=== PATIENT | male | born 2005 | race Caucasian/White ===

== ENCOUNTER 2024-08-05 12:33 | Outpatient (AMB) | payer BC, SELFPAY ==
--- NOTE | 2024-08-05 12:34 | MHC.PC.OV ---
Vital Signs 08/05/24 12:36 Height 5 ft 9 in Weight 165 lb BMI 24.4 BP 118/76 Blood Pressure Location Lt brachial Position Sitting Pulse 83 Pulse Source Pulse Oximeter Temp 98.8 F Temp Source Oral Pulse Oximetry (%) 98 Oxygen Delivery Method Room Air Intake Visit Reasons: New patient PE ok Per Dr. Haji Intake Note: Pt is here today for New patient visit PE. Allergies No Known Allergies Allergy (Verified 08/05/24 12:37) Medication List - Last Reconciled 08/05/24 by Herminia Haji MD No Known Home Meds Tobacco use date assessed: 08/05/24 Dental Screening Dental Screen Date: 08/05/24 Did you have a dental visit in the last 12 months?: Yes Did you have a dental problem in the last 6 months where you did not have access to dental care?: No Was dental information given to patient?: Patient has dentist HPI New patient PE ok Per Dr. 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 Patient reports episodes of headaches on and off for the last few weeks. He denies change in vision, nausea vomiting fever chills allergic rhinitis symptoms but reports waking up frequently at night at least 5 times at night for the last 2 years. He has no difficulty falling back to sleep. Patient denies witnessed episodes of sleep apnea, increased stress or anxiety. 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 [facility] Surgical History (Updated 08/05/24 @ 12:40 by Lauren Rosenberg Carlos) No pertinent past surgical history Family History Father No problems noted. Mother Type 2 diabetes mellitus Social History Household Members Other:: lives with parents, student at [employer], Housing: House Patient Tobacco Use Status: Never used Tobacco e-Cigarette/Vaping Use: Never Used service: No Current occupational status: employed and student Cognitive needs: No Hearing needs: No Vision needs: Yes Questionnaire PHQ-9 Over the last 2 weeks, how often have you been bothered by any of the following problems? 1. Little interest or pleasure in doing things: not at all 2. Feeling down, depressed, or hopeless: not at all 3. Trouble falling or staying asleep, or sleeping too much: several days 4. Feeling tired or having little energy: several days 5. Poor appetite or overeating: several days 6. Feeling bad about yourself - or that you are a failure or have let yourself or your family down: not at all 7. Trouble concentrating on things, such as reading the newspaper or watching television: not at all 8. Moving or speaking so slowly that other people could have noticed. Or the opposite - being so fidgety or restless that you have been moving around a lot more than usual: not at all 9. Thoughts that you would be better off or of hurting yourself in some way: not at all Total score: 3 Depression Screening Interpretation: Negative Depression Screening Done: Yes 02747 - PHQ-9 Billing: Yes Source: Developed by Drs. Roberth Montemayor, Nan Fritz, Faizan Khalil and colleagues, with an educational ratna from [employer]. Thrive Questionnaire Date Thrive assessed: 08/05/24 I am a: Patient What is your living situation today?: I have a steady place to live Within the past 12 months, did the food you bought not last and you didn't have the money to get more?: Never true Within the past 12 months, did you worry whether your food would run out before you got money to buy more?: Never true Do you have trouble paying for medicines?: I choose not to answer this question Do you have trouble getting transportation to medical appointments?: I choose not to answer this question Do you have trouble paying your heating and electricity bill?: I choose not to answer this question Do you have trouble taking care of your child, family member or friend?: I choose not to answer this question Do you have trouble with day-to-day activities such as bathing, preparing meals, shopping, managing finances, etc.?: I choose not to answer this question Are you currently unemployed and looking for a job?: I choose not to answer this question Are you interested in more education?: I choose not to answer this question Please select the resources that you would like help with: None Currently or been in a relationship where the following occur: No concerns reported THRIVE Score: 0 AUDIT C Alcohol Use Questionnaire (AUDIT-C) 1. How often do you have a drink containing alcohol?: Monthly or less 2. How many drinks containing alcohol do you have on a typical day when you are drinking?: 3 or 4 3. How often do you have six or more drinks on one occasion?: Less than monthly Total Score: 3 LESLIE-7 AMB Questionnaire LESLIE-7 Date LESLIE - 7 assessed: 08/05/24 Feeling nervous, anxious, or on edge: 0 = Not at all Not being able to stop or control worryin = Not at all Worrying too much about different things: 0 = Not at all Trouble relaxin = Not at all Being so restless that it is hard to sit still: 0 = Not at all Becoming easily annoyed or irritable: 1 = Several days Feeling afraid as if something awful might happen: 0 = Not at all Total LESLIE-7 score (0-4 normal; 5-9 mild; 10-14 moderate; 15-21 severe): 1 Source: Developed by Drs. Roberth Montemayor, Nan Fritz, Faizan Khalil and colleagues, with an educational ratna from [employer]. LESLIE-7 Assessment Billing LESLIE-7 Assessment Tool: LESLIE-7 Assessment 09667 Review of Systems Const All systems reviewed & are unremarkable except as noted in HPI and below Reports no additional complaints Eyes Reports no additional complaints ENT Reports no additional complaints Card Reports no additional complaints Resp Reports no additional complaints GI Reports no additional complaints Reports no additional complaints Physical exam (Primary Care) Vital Signs: Last Vital Signs Temp 98.8 F 08/05/24 12:36 Pulse 83 08/05/24 12:36 BP 118/76 08/05/24 12:36 Pulse Ox 98 08/05/24 12:36 Oxygen Delivery Method Room Air 08/05/24 12:36 BMI result Body Mass Index 24.4 Tobacco/Smoking Status: Tobacco use Status Tobacco use date assessed 08/05/24 08/05/24 12:41 Patient Tobacco Use Status Never used Tobacco 08/05/24 12:41 e-Cigarette/Vaping Use Never Used 08/05/24 12:41 PHQ-9: PHQ-9 Score PHQ-9: Total score 3 08/05/24 12:41 Depression Screening Interpretation: Negative Thrive Assessment: Date of Thrive Assessment Date Thrive assessed 08/05/24 08/05/24 12:41 Currently or been in a relationship where the following occur: No concerns reported Const General: no acute distress HENMT Head: Yes normal to inspection Ears: hearing grossly normal bilaterally Face and sinus: Yes normal facial exam Mouth: Normal oral and palatal mucosa present Throat: Yes posterior oropharynx normal Eyes General: appearance normal, both eyes and all related structures Neck Neck: Yes no lymphadenopathy and Yes supple Resp Effort & Inspection: normal respiratory effort Auscultation: clear to auscultation bilaterally Cardio Rhythm: regular rhythm Heart sounds: S1 normal heart sound present and S2 normal heart sound present GI Inspection: Yes normal to inspection Palpation (GI): Soft to palpation Percussion: Yes normal to percussion Auscultation: normal bowel sounds Extrem General: Yes no clubbing, cyanosis or edema Coding Level of Care Code New Pt Prev Care 18-39yr(76191 Diagnoses Annual physical exam Z00.00 Additional Codes LESLIE-7 Assessment Billing - LESLIE-7 Assessment Tool: LESLIE-7 Assessment 69446 ([id number]) PHQ-9 - 42175 - PHQ-9 Billing: Yes ([id number]) Assessment & Plan Assessment & Plan (1) Annual physical exam: Code(s): Z00.00 - Encounter for general adult medical examination without abnormal findings Category: Medical Plan: Well-balanced diet regular physical activity stress management and sleep hygiene discussed with the patient. He will return for fasting blood work. Patient was advised to monitor frequency of headaches and follow-up as Orders: Orders Lipid Panel Today Z00.00 - Encounter for general adult medical examination without abnormal findings UA w Microscopic Today Z00.00 - Encounter for general adult medical examination without abnormal findings Complete Blood Count Auto Diff Today Z00.00 - Encounter for general adult medical examination without abnormal findings Comprehensive [place]. Panel Fast Today Z00.00 - Encounter for general adult medical examination without abnormal findings
[2024-08-05 12:36] VITALS: BP 118/76; PULSE 83; TEMP 37.1; O2SAT 98; BMI 24.4
--- OUTSIDE RECORDS SUMMARY | 2024-08-05 14:43 | XMS_ITS | Encounter Summary ---
Author Organization [facility] Address [address] [place] [address] Phone Care Team Providers Care Auto Finance Sales Rep Name Role Phone Milla Graham MD Primary Care Prov ider Encounter Details Date Type Department Care Team (Late st Contact Info) Description 09/05/2017 Conversion Encounter [facility] [address] [phone] Milla Kulkarni MD [address] [id number] Social History Tobacco Use Types Packs/Day Years Used Date Smoking Tobacco: Never Assessed Sex and Gender Information Value Date Recorded Sex Assigned at Male 02/15/2021 11:03 AM EDT Legal Sex Male 12:17 PM EST Gender Identity Male 02/15/2021 11:03 AM EDT Sexual Orientation Straight 02/15/2021 11 :03 AM EDT documented as of this encounter Plan of Treatment Not on file documented as of this encounter Visit Diagnoses Not on filedocumented in this encounter Care Teams Auto Finance Sales Rep Relationship Specialty Start Date End Date Milla Graham MD [address] [phone] PCP - General 06/12/17 02/26/24 documented as of this encounter
--- OUTSIDE RECORDS SUMMARY | 2024-08-05 14:43 | XMS_ITS | Clinical Summary ---
Author Organization [facility] Address [address] [place] [phone] Phone Care Team Providers Care Immigration Consultant Name Role Phone Unavailable Primary Care Provider Unavailabl e Allergies No known active allergies Medications clindamycin-franki oyl peroxide 1-5% gel 0 8 Active Adapalene-Benzoy l Peroxide 0.1-2.5 % gel 0 8 Active albuterol HFA 108 (90 Base) MCG/ACT inhalerIndicatio ns:Bronchospasm Inhale 2 puffs every 4 (four) hours as needed for wheezing. One for home, one for school 2 Units 9 Active hydrocortisone 2.5 % creamIndications :Acute bronchospasm Apply topically 2 (two) times a day as needed for rash. 20 g 1 9 Active Additional Information Patient not taking.Reported on 02/15/2021 Active Problems Problem Noted Date Diagnosed Date Vitiligo 02/16/2021 Overview (02/16/2021): Importance of skin sun protection emphasized. Immunization not carried out because of parent r efusal 02/06/2020 Overview (02/06/2020): HPV vaccine not given in past Assessment & Plan (02/06/2020 12:17 PM EDT): Today dad declined HPV vaccine and initially declined 2nd Menactra but later agreed to Menactra only after speaking to Dr. 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 Assessment & Plan (02/17/2020 9:56 AM EDT): Pt seen by Vignesh in the past; per pt he has not noticed issue being worse & is not concerned Adolescent idiopathic scoliosis 06/12/2017 Overview (03/06/2018): 3 deg Assessment & Plan (02/15/2021 5:53 PM EDT): unchanged Assessment & Plan (02/17/2020 9:57 AM EDT): 3-4 degree Acne vulgaris 06/08/2016 Wears glasses Overview (03/06/2018): for bl. myopia History of varicella as a child Overview (06/19/2018): post/varicella nasal scar Immunizations Name Administration Dates Next Due DTaP 10/07/2007, 5,2003,03/31 H1N1 09/01/2009 HPV Vaccine 9 Valent 02/15/2021,06/19/20 18(Deferred: Parental decision) Hep A, ped/adol 11/17/2015,04/26/2015 Hep B, ped/adol 2003,2003,2003 IPV 04/28/2014, 5,02/23/2004,06/23,2003 Influenza, injectable, quadr ivalent, preservative free 06/19/2018(Deferred: Parental decision) Influenza, injectable, trivalent 05/10/2010,08/09 MMR 09/01/2009,02/23/2004 Meningococcal Conj (Menactra) MCV4P 02/05/2020,0 03/25/2014 Tdap 03/25/2014 Varicella 03/25/2014,02/23/2004 Family History Medical History Relation Name Comments Hypertension Maternal Grandmother Relation Name Status Comments Maternal Grandmother Social History Tobacco Use Types Packs/Day Years Used Date Smoking Tobacco: Never Smokeless Tobacco: Never Alcohol Use Standard Drinks/Week Comments No 0 (1 standard drink = 0.6 oz pur e alcohol) Hunger/Food Answer Date Recorded In the last 12 months, did y ou or your family ever eat less than you felt you should because there wasn't enough money for food? No 02/05/2020 Stable Housing Answer Date Recorded Are you worried that in the next 2 months you may not have stable housing? No 02/05/2020 Transportation Concerns Answer Date Rec orded In the last 12 months, have you or your family ever had to go without healthcare because you didn't have a way to get there? No 02/05/2020 Hazards in Home Answer Date Recorded Think about the place you li ve. Do you have problems with any of the following? Pests (mice or roaches), mold, no/not working smoke detectors, water leaks, no window guards. No 2019 Financing Utilities Answer Date Recorde d In the last 12 months, has t he electric, gas, oil, or water company threatened to shut off your services in your home? No 02/05/2020 Safety at Home Answer Date Recorded Are you or your family worried about feeling saf e in your home? No 02/05/2020 Outside Support Answer Date Recorded Do you feel that you need mo re support from other people or programs to help you care for yourself or your family? No 02/05/2020 Understanding Health Concerns Answer Da te Recorded Do you need help understandi ng your or your child's healthcare needs (diagnosis, medications, plan, etc.)? No 02/05/2020 Financing Health Concerns Answer Date R ecorded In the last 12 months, was t here a time when your child needed to see a doctor or get medications or supplies but could not because of cost? No 02/05/2020 Missing School or Work Answer Date Jeremy rded Did you or your child miss s chool or work because of a health problem that could have been avoided? No 02/05/2020 Sex and Gender Information Value Date Recorded Sex Assigned at Male 02/15/2021 11:03 AM EDT Legal Sex Male 12:17 PM EST Gender Identity Male 02/15/2021 11:03 AM EDT Sexual Orientation Straight 02/15/2021 11 :03 AM EDT Last Filed Vital Signs Vital Sign Reading Time Taken Comments Blood Pressure 111/69 02/15/2021 10:34 AM EDT Pulse 86 02/15/2021 10:34 AM EDT Temperature 36.4 ??C (97.6 ??F) 02/15/2021 10:34 AM E DT Respiratory Rate - - Oxygen Saturation 98% 01/15/2019 4:31 PM EDT Inhaled Oxygen Concentration - - Weight 71.7 kg (158 lb 2 oz) 02/15/2021 10:34 AM EDT Height 175.9 cm (5' 9.25 ) 02/15/2021 10:34 AM E DT Body Mass Index 23.18 02/15/2021 10:34 AM EDT Plan of Treatment Health Maintenance Due Date Last Done Comments Men B Vaccine (1 of 2 - Standard) 2019 HPV Vaccines (2 - Male 3-dose series) 03/15/2021 02/15/2021 Influenza Vaccines (#1) 2024 05/10/2010, 09/01 COVID-19 Vaccine (3 - season) 2024 01/19/2021, 12/19/2020 DTaP,Tdap,and Td Vaccines (6 - Td or Tdap) 03/25/2024 03/25/2014, 10/07/2007, 08/16/2004, Additional history exists Hepatitis B Vaccines Completed 2003, 2003, 2003 MMR Vaccines Completed 09/01/2009, 02/23/2004 Varicella Vaccines Completed 03/25/2014, 02/23/2004 IPV Vaccines Completed 04/28/2014, 02/0 03/2005, 02/23/2004, Additional history exists Hepatitis A Vaccines Completed 11/17/2015, 04/26/20 15 Meningococcal Vaccine Completed 02/05/2020, 014 HIB Vaccines Aged Out No longer eligi ble based on patient's age to complete this topic Pneumococcal Vaccine Aged Out No long er eligible based on patient's age to complete this topic Insurance [facility] PPO [facility] PPO [facility] PPO
== END 2024-08-05 13:01 | disposition home or self-care (01) ==
PROVIDERS: PCP Internal Medicine; Visit Provider Internal Medicine
DX: Z00.00 Encounter for general adult medical examination without abnormal findings (principal)

== ENCOUNTER → 2024-08-05 12:33 | Outpatient (BNVA) | payer BC, SELFPAY | PROVIDERS: PCP Internal Medicine; Visit Provider Internal Medicine | DX: Z00.00 Encounter for general adult medical examination without abnormal findings (principal) | CPT/HCPCS: 96127 ==